=== PATIENT | female | born 1955 | race Caucasian/White ===

== ENCOUNTER → 2017-05-30 | Outpatient (CLI) | payer OTHER ==
[2015-06-06 11:00] VITALS: BP 132/82
[~2017-05-30] MED LIST: DULO60CA6 PO; LEVO75TA5 PO; SIMV40TA3 PO
--- NOTE | 2017-05-30 12:58 | RAD ---
DATE: 05/30/2017 EXAM: DIGITAL SCREEN BILAT W/CAD HISTORY: Routine screening COMPARISON: 05/28/2016 This study was interpreted with the benefit of Computerized Aided Detection (CAD). The breast parenchyma shows scattered fibroglandular densities. Breast parenchyma level B. FINDINGS: No new or enlarging breast densities are seen. Minimal benign calcifications are present. No suspicious microcalcifications have developed. IMPRESSION: Stable mammograms without evidence of malignancy. BI-RADS CATEGORY: 2 BENIGN FINDING(S) RECOMMENDED FOLLOW-UP: 12M 12 MONTH FOLLOW-UP PQRS compliance statement: Patient information was entered into a reminder system with a target due date for the next mammogram. Mammography is a sensitive method for finding small breast cancers, but it does not detect them all and is not a substitute for careful clinical examination. A negative mammogram does not negate a clinically suspicious finding and should not result in delay in biopsying a clinically suspicious abnormality. "Our facility is accredited by the [employer] Mammography [employer]."
== END | disposition home or self-care (01) ==
LOC: MAMMO 10:00
PROVIDERS: ATTEND Nurse Practitioner Family
DX: Z12.31 Encounter for screening mammogram for malignant neoplasm of breast (principal)
CPT/HCPCS: G0202; 77067

== ENCOUNTER → 2017-11-18 | Outpatient (CLI) | payer OTHER | END | disposition home or self-care (01) | LOC: KCIC MRI 07:44 | DX: M50.222 Other cervical disc displacement at C5-C6 level (principal); M50.323 Other cervical disc degeneration at C6-C7 level; M47.892 Other spondylosis, cervical region; M25.78 Osteophyte, vertebrae | CPT/HCPCS: 71101; 72141 ==

== ENCOUNTER → 2018-06-19 | Outpatient (CLI) | payer OTHER ==
[2015-06-06 11:00] VITALS: BP 132/82
--- NOTE | 2018-06-19 13:39 | RAD ---
DATE: 06/19/2018 EXAM: DIGITAL SCREEN BILAT W/CAD HISTORY: Routine screening COMPARISON: 05/30/2017 This study was interpreted with the benefit of Computerized Aided Detection (CAD). Breast Density: SCATTERED The breast parenchyma shows scattered fibroglandular densities. Breast parenchyma level B. FINDINGS: No new or enlarging breast densities are seen. Minimal benign type calcifications are present. No suspicious microcalcifications have developed. IMPRESSION: Stable mammograms without evidence of malignancy. BI-RADS CATEGORY: 2 BENIGN FINDING(S) RECOMMENDED FOLLOW-UP: 12M 12 MONTH FOLLOW-UP PQRS compliance statement: Patient information was entered into a reminder system with a target due date for the next mammogram. Mammography is a sensitive method for finding small breast cancers, but it does not detect them all and is not a substitute for careful clinical examination. A negative mammogram does not negate a clinically suspicious finding and should not result in delay in biopsying a clinically suspicious abnormality. "Our facility is accredited by the [employer] Mammography [employer]."
== END | disposition home or self-care (01) ==
LOC: MAMMO 09:48
PROVIDERS: ATTEND Nurse Practitioner Family
DX: Z12.31 Encounter for screening mammogram for malignant neoplasm of breast (principal)
CPT/HCPCS: 77067

== ENCOUNTER → 2018-07-31 | Outpatient (CLI) | payer OTHER ==
[2015-06-06 11:00] VITALS: BP 132/82
--- NOTE | 2018-07-31 17:28 | KCIC ---
Three-view thoracic spine series Clinical indications: Back pain for couple of years. FINDINGS: No compression fracture or discitis or osteolytic process is evident. Mild degenerative endplate spurring is seen throughout the thoracic spine. IMPRESSION: No acute compression fracture. Electronically signed by: aFisal Antunez MD (07/31/2018 5:25 PM) [place] [id number]
--- NOTE | 2018-07-31 17:29 | KCIC ---
3 view study of the left elbow Clinical indications: Left elbow pain for one and half years which is getting worse. FINDINGS: No joint effusion is seen. No acute fracture or dislocation or osteolytic process is evident. No significant arthritic change is evident. No swelling of the olecranon bursa is seen to indicate bursitis radiographically. IMPRESSION: No significant osseous abnormality. Electronically signed by: Faisal Antunez MD (07/31/2018 5:25 PM) [id number]
--- NOTE | 2018-08-01 08:28 | KCIC ---
CT scan of the chest without contrast 07/31/2018 CLINICAL HISTORY: Left-sided chest pain. History of lung nodule. TECHNIQUE: Unenhanced, contiguous, 1.5 mm axial sections were obtained through the chest and upper abdomen. One or more of the following individualized dose reduction techniques were utilized for this study: 1. Automated exposure control. 2. Adjustment of the mA and/or kV according to patient size. 3. Use of iterative reconstruction technique. FINDINGS: Comparison is made to a PA chest radiograph dated 11/18/2017. The heart is normal in size. Mild scattered atherosclerotic calcification of the thoracic aorta and coronary arteries is seen. The thoracic aorta tapers normally. Calcified left hilar and mediastinal lymph nodes are seen. No hilar, mediastinal or axillary lymphadenopathy is noted. An 6 mm calcified granuloma is seen involving the left lower lobe. This corresponds to the abnormality seen on the patient's recent chest radiograph. No noncalcified pulmonary nodule is seen. No pulmonary infiltrate, pleural effusion or pneumothorax is noted. Images through the upper abdomen demonstrate atherosclerotic calcification involving the abdominal aorta. Mild degenerative changes are seen involving the thoracic spine. IMPRESSION: Findings consistent with prior granulomatous disease. No acute abnormality is seen. Electronically signed by: Giles Sorensen MD (08/01/2018 8:24 AM) [id number]
== END | disposition home or self-care (01) ==
LOC: KCIC CT 10:49
PROVIDERS: ATTEND Nurse Practitioner Family
DX: M47.894 Other spondylosis, thoracic region (principal); M25.522 Pain in left elbow; R91.1 Solitary pulmonary nodule; I70.90 Unspecified atherosclerosis
CPT/HCPCS: 71250; 72072; 73080

== ENCOUNTER → 2019-07-03 | Outpatient (CLI) | payer OTHER ==
[2015-06-06 11:00] VITALS: BP 132/82
[~2019-07-03] MED LIST changes: +SIMV40TA18 PO; -SIMV40TA3 PO
--- NOTE | 2019-07-03 16:26 | RAD ---
DATE: 07/03/2019. EXAM: DIGITAL SCREEN BILAT W/CAD. HISTORY: Routine mammographic screening. COMPARISON: 06/19/2018. This study was interpreted with the benefit of Computerized Aided Detection (CAD). FINDINGS: Breast Density: SCATTERED The breast parenchyma shows scattered fibroglandular densities. Breast parenchyma level B.. Scattered and vascular calcifications are benign. Small nodules laterally on the right are stable. There are no suspicious masses, microcalcifications or architectural distortion. The parenchymal pattern is stable. BI-RADS CATEGORY: 2 BENIGN FINDING(S). RECOMMENDED FOLLOW-UP: 12M 12 MONTH FOLLOW-UP. PQRS compliance statement: Patient information was entered into a reminder system with a target due date 07/03/2020 for the next mammogram. Mammography is a sensitive method for finding small breast cancers, but it does not detect them all and is not a substitute for careful clinical examination. A negative mammogram does not negate a clinically suspicious finding and should not result in delay in biopsying a clinically suspicious abnormality. "Our facility is accredited by the [employer] Mammography [employer]."
== END | disposition home or self-care (01) ==
LOC: MAMMO 08:42
PROVIDERS: ATTEND Nurse Practitioner Family
DX: Z12.31 Encounter for screening mammogram for malignant neoplasm of breast (principal); N64.89 Other specified disorders of breast; N63.10 Unspecified lump in the right breast, unspecified quadrant
CPT/HCPCS: 77067

== ENCOUNTER → 2019-11-16 | Outpatient (CLI) | payer OTHER ==
[2015-06-06 11:00] VITALS: BP 132/82
--- NOTE | 2019-11-16 11:46 | KCIC ---
Indication: Postmenopausal screening for osteoporosis. COMPARISON: None available. Bone Density: -BMD: (g/cm2) - AP Spine Total (L1-L4).......... 0.982. - Total left Hip................. 0.812. T-Score: - AP Spine Total (L1-L4)......... -0.6. - Total left Hip................. -1.1. Z-Score: - AP Spine Total (L1-L4).......... 1.2. - Total left Hip................. 0.2. World Health Organization criteria for BMD interpretation classify patients as Normal (T-score at or above -1.0), Osteopenic (T-score between -1.0 and -2.5), or Osteoporotic (T-score at or below -2.5). Impression: 1. AP Spine Total L1-L4--- normal. 2. Total left Hip--- osteopenia. Electronically signed by: Faisal Antunez MD (11/16/2019 11:43 AM) [facility] [place]
== END | disposition home or self-care (01) ==
LOC: KCIC DEXA 10:20
PROVIDERS: ATTEND Family Medicine
DX: M85.88 Other specified disorders of bone density and structure, other site (principal); Z78.0 Asymptomatic menopausal state
CPT/HCPCS: 77080

== ENCOUNTER → 2020-03-20 | Outpatient (CLI) | payer OTHER ==
[2015-06-06 11:00] VITALS: BP 132/82
--- NOTE | 2020-03-20 13:01 | KCIC ---
EXAM: Chest CT without intravenous contrast. HISTORY: Pulmonary nodule follow-up. TECHNIQUE: Computed tomographic images of the chest were obtained without contrast. Multiplanar reformatting was performed. *One or more of the following individualized dose reduction techniques were utilized for this examination: 1. Automated exposure control. 2. Adjustment of the mA and/or kV according to patient size. 3. Use of iterative reconstruction technique. COMPARISON: 07/31/2018. FINDINGS: The heart is normal in size. There is calcified atherosclerotic plaque involving the coronary arteries. The aorta is normal in caliber. The left vertebral artery originates likely from the aortic arch, a normal aortic arch branching variant. There are nonspecific mediastinal and hilar lymph nodes. These are not pathologically enlarged. There is no pneumothorax or pleural effusion. There is mild biapical pleural parenchymal scarring. There is also scarring within the right middle lobe, lingula and right lower lobe. There is a calcified granuloma with adjacent 8 mm elongated nodular density within the lateral left lower lobe (series 7, image 119), consistent with a pulmonary vessel. There few additional calcified granulomas within the left hilum The upper abdomen demonstrates no acute finding. There is a splenule adjacent to a normal sized spleen contains a few calcified granulomas. There is no suspicious osseous lesion. IMPRESSION: 1. Calcified granuloma within the left lower lobe with adjacent 8 mm elongated nodular density likely due to volume averaging of a pulmonary vessel. No suspicious pulmonary nodule is seen. 2. No acute thoracic finding. Electronically signed by: Lyndsay Oviedo MD (03/20/2020 12:59 PM) [id number]
== END ==
LOC: KCIC CT 12:19
PROVIDERS: ATTEND Family Medicine
DX: J98.4 Other disorders of lung (principal)
CPT/HCPCS: 71250

== ENCOUNTER → 2020-07-16 | Outpatient (CLI) | payer OTHER ==
[2015-06-06 11:00] VITALS: BP 132/82
--- NOTE | 2020-07-17 09:52 | RAD ---
DATE: 07/16/2020 2:09 PM EXAM: MAMMO CYNTHIA SCREENING BILATERAL HISTORY: Screening COMPARISON: 07/03/2019, 06/19/2018 Bilateral CC and MLO views of the breasts were performed. Bilateral breast tomosynthesis was performed in CC and MLO projections. This study was interpreted with the benefit of Computerized Aided Detection (CAD). FINDINGS: Breast Density: SCATTERED The breast parenchyma shows scattered fibroglandular densities. Breast parenchyma level B Negative left mammogram. Right mammogram shows a 4 mm oval mass in the anterior upper outer quadrant at the approximate 11:00 position 5 cm from the nipple that needs additional imaging with spot compression views and targeted ultrasound.. IMPRESSION: Right breast mass, findings for which additional imaging is advised. BI-RADS CATEGORY: 0 INCOMPLETE: NEEDS ADDITIONAL IMAGING EVALUATION AND/OR PRIOR MAMMOGRAMS FOR COMPARISON. RECOMMENDED FOLLOW-UP: ADD ADDITIONAL IMAGING The patient will be contacted to return for additional imaging and a supplemental report will follow. PQRS compliance statement: Patient information was entered into a reminder system with a target due date for the next mammogram. Mammography is a sensitive method for finding small breast cancers, but it does not detect them all and is not a substitute for careful clinical examination. A negative mammogram does not negate a clinically suspicious finding and should not result in delay in biopsying a clinically suspicious abnormality. "Our facility is accredited by the [employer] Mammography Program."
== END ==
LOC: MAMMO 13:47
PROVIDERS: ATTEND Family Medicine
DX: Z12.31 Encounter for screening mammogram for malignant neoplasm of breast (principal)
CPT/HCPCS: 77063; 77067

== ENCOUNTER → 2020-07-28 | Outpatient (CLI) | payer OTHER ==
[2015-06-06 11:00] VITALS: BP 132/82
--- NOTE | 2020-07-28 14:34 | RAD ---
Examination: 1. Right digital diagnostic mammogram. 2. Limited right breast ultrasound. INDICATION: 64-year-old woman recalled from screening for a small mass in the anterior upper outer right breast. COMPARISON: Screening mammograms of 07/13/2019, 07/16/2020 FINDINGS: Additional mammographic views confirm persistence of an oval mass 5 mm in diameter in the upper outer anterior right breast. Margins were obscured by overlying breast tissue but increased density persisted with spot views. Targeted ultrasound of the upper outer quadrant right breast identified an oval parallel orientation 5 mm nodule at the right 11:00 position 5 cm from the nipple that corresponds in size shape and position with the mammographic finding recalled from screening. IMPRESSION: Mildly suspicious 5 mm mass in the right breast at the 11:00 position 5 cm from the nipple. BI-RADS Category 4 Findings suspicious for malignancy. Recommend ultrasound-guided core needle biopsy. Discussed with patient prior to her discharge from imaging suite. Report telephoned to the patient's referring physician's office where Kenyatta Kendall nurse for Dr. Corcoran took the call on her behalf at 2:30 PM on 07/28/2020 Electronically signed by: Rao Hodge MD (07/28/2020 2:31 PM) [id number]
== END ==
LOC: MAMMO 07:44
PROVIDERS: ATTEND Family Medicine
DX: R92.8 Other abnormal and inconclusive findings on diagnostic imaging of breast (principal); N63.11 Unspecified lump in the right breast, upper outer quadrant
CPT/HCPCS: 76641; 77065

== ENCOUNTER → 2020-10-27 | Outpatient (CLI) | payer OTHER ==
[2015-06-06 11:00] VITALS: BP 132/82
--- NOTE | 2020-10-27 17:30 | RAD ---
EXAM: Lower extremity arterial Doppler sonogram with ankle-brachial indices (ELLEN). HISTORY: Toe pain. Peripheral vascular disease. TECHNIQUE: Doppler sonographic evaluation of the lower extremities was performed and pressure reading s were assessed. FINDINGS: Right brachial pressure: 145 mmHg Left brachial pressure: 138 mmHg Right ankle pressure (dorsalis pedis): 140 mmHg Right ankle pressure (posterior tibial): 141 mmHg Right ELLEN: 0.97 Left ankle pressure (dorsalis pedis): 141 mmHg Left ankle pressure (posterior tibial): 135 mmHg Left ELLEN: 0.97 IMPRESSION: Normal bilateral ankle-brachial indices. Electronically signed by: Lyndsay Oviedo MD (10/27/2020 5:28 PM) [id number]
== END ==
LOC: US 15:43
PROVIDERS: ATTEND Family Medicine
DX: S90.122A Contusion of left lesser toe(s) without damage to nail, initial encounter (principal); S90.121A Contusion of right lesser toe(s) without damage to nail, initial encounter; X58.XXXA Exposure to other specified factors, initial encounter; Y93.89 Activity, other specified; Y92.89 Other specified places as the place of occurrence of the external cause; Y99.8 Other external cause status
CPT/HCPCS: 93922

== ENCOUNTER → 2020-11-07 | Outpatient (CLI) | payer OTHER ==
[2015-06-06 11:00] VITALS: BP 132/82
--- NOTE | 2020-11-07 17:51 | KCIC ---
Barium swallow 11/07/2020 CLINICAL HISTORY: Dysphagia for 2 to 3 months. Difficulty swallowing pills. TECHNIQUE: A barium swallow study was performed under fluoroscopic control. The total fluoroscopic ti me is 5 minutes 21 seconds. 9 digital spot radiographs were obtained. FINDINGS: The swallowing mechanism is within normal limits. No aspiration is seen. The mucosal pattern of the hypopharynx, esophagus and GE junction is within normal limits. Tertiary c ontractions of the esophagus are seen consistent with mild to moderate esophageal dysmotility. There is a small sliding hiatal hernia. Mild to moderate gastroesophageal reflux is seen to the level of th e mid thoracic esophagus. The patient was given a barium tablet to swallow under fluoroscopy. The transit of the tablet through the esophagus was prolonged. The tablet persisted within the distal thoracic esophagus just superior to the GE junction for approximately a minute. This gradually passed into the stomach after the rodrigo ent ingested several mouthfuls of water. IMPRESSION: 1. Mild to moderate esophageal dysmotility. 2. Small sliding hiatal hernia. Qkfk-jx-eultdylr gastroesophageal reflux. 3. Prolonged transit of the barium tablet through the esophagus as discussed above. Electronically signed by: Giles Sorensen MD (11/07/2020 5:49 PM) [id number]
== END ==
LOC: KCIC 12:21
PROVIDERS: ATTEND Internal Medicine Gastroenterology
DX: K44.9 Diaphragmatic hernia without obstruction or gangrene (principal); K21.9 Gastro-esophageal reflux disease without esophagitis; R13.10 Dysphagia, unspecified
CPT/HCPCS: 74220

== ENCOUNTER → 2020-12-30 | Outpatient (CLI) | payer OTHER ==
[2015-06-06 11:00] VITALS: BP 132/82
[~2020-12-30] MED LIST changes: +CONTRAST GIVEN. MC PRN; +IOHEXOL 350 MG/ML 100 ML VIAL. IV ONE
--- NOTE | 2020-12-30 14:30 | RAD ---
Exam: CT angiogram abdomen and pelvis with bilateral lower extremity runoff CLINICAL HISTORY: Reason: PAD, both feet TOE PAIN / DISCOLORATION COMPARISON: none TECHNIQUE: CT angiogram of the abdomen and pelvis with bilateral lower extremity runoff was performed following the administration of IV contrast. Axial, coronal and sagittal reformatted images were gen erated. 2-D/3-D MIP reconstructions were also generated. PQRS compliance statement - One or more of the following individualized dose reduction techniques wer e utilized for this study: 1. Automated exposure control 2. Adjustment of the mA and/or kV according to patient size 3. Use of iterative reconstruction technique FINDINGS: CT angiogram: The visualized distal thoracic aorta and abdominal aorta are normal in caliber. Intermittent atherosc lerotic calcifications are seen. The common, internal and external iliac arteries bilaterally are pat ent, normal in caliber with intermittent atherosclerotic calcifications. Single bilateral renal arteries are widely patent. The SMA, celiac trunk and TERA are patent. Bilateral common femoral, superficial femoral, popliteal arteries are widely patent. The arteries of the calf are widely patent with in-line flow to the ankle and both the dorsalis pedis and posterior t ibialis arteries. CT abdomen and pelvis: Linear opacities lower lobes likely scarring/atelectasis. No focal liver lesion. Gallbladder is normal. No biliary duct dilatation. Pancreas and spleen are nor mal in appearance. Adrenal glands are unremarkable. Symmetric nephrograms. No focal renal lesion. Mil d cortical scarring inferior pole right kidney. No hydronephrosis. No hydroureter. Bladder is unremar kable. Moderate colonic stool content is seen. No small or large bowel dilatation. No bowel obstruction. No abdominal or pelvic lymphadenopathy. No abdominal or pelvic ascites. Degenerative changes of lower lumbar spine. No aggressive osseous lesion. Changes of first metatarsal osteotomy are seen. IMPRESSION: Intermittent atherosclerotic calcifications of aorta are seen. No evidence for high-grade stenosis or occlusion of the aorta, main branches are otherwise vessels with in-line flow to the ankle bilateral ly. Electronically signed by: Jasbir Suh MD (12/30/2020 2:28 PM) [facility]
== END ==
LOC: CT 08:33
PROVIDERS: ATTEND Surgery Vascular Surgery
DX: R23.0 Cyanosis (principal); I73.9 Peripheral vascular disease, unspecified; M47.816 Spondylosis without myelopathy or radiculopathy, lumbar region
CPT/HCPCS: 75635; Q9967

== ENCOUNTER → 2021-02-02 | Outpatient (CLI) | payer OTHER ==
[2015-06-06 11:00] VITALS: BP 132/82
[~2021-02-02] MED LIST changes: -CONTRAST GIVEN. MC PRN; -IOHEXOL 350 MG/ML 100 ML VIAL. IV ONE
--- NOTE | 2021-02-02 15:23 | CARD ---
MR#: [id number] Date of Study: 02/02/2021 Ordering Physician: ELZBIETA HURT, Referring Physician: ELZBIETA HURT, Tech: Freedom Zimmer ZENIA APPROVED REPORT EXAM: Two-dimensional and M-mode echocardiogram with Doppler and color Doppler. Other Information Quality : AverageHR: 83bpm Rhythm : NSR INDICATION Dyspnea RISK FACTORS Hyperlipidemia 2D DIMENSIONS Left Atrium(2D)3.2 (1.6-4.0cm)IVSd1.1 (0.7-1.1cm) Aortic Root(2D)2.7 (2.0-3.7cm)LVDd4.2 (3.9-5.9cm) LVOT Diameter2.1 (1.8-2.4cm)PWd1.1 (0.7-1.1cm) LVDs2.5 (2.5-4.0cm)FS (%) 40.2 % SV57.1 mlLVEF(%)71.2 (>50%) Aortic Valve AoV Peak Ovi.101.6cm/sAoV VTI22.9cm AO Peak GR.4.1mmHgLVOT Peak Ovi.94.3cm/s AO Mean GR.3mmHgAVA (VMAX)3.17cm2 Mitral Valve MV E Qanhxjvc25.3cm/sMV E Peak Gr.3mmHg MV DECEL [id number] A Wpopcbqn73.1cm/s MV E Mean Gr.2mmHgE/A Ratio0.7 MV A Ceqghhrx732uc Pulmonary Valve PV Peak Adyyvbqs17.8cm/s Tricuspid Valve TR P. Wnweasnd640ca/sTR Peak Gr.11mmHg Pulmonary Vein S1 Pbpvwyjf87.9cm/sD2 Zwflogzi15.2cm/s PVa [id number] LEFT VENTRICLE The left ventricle is normal size. There is normal left ventricular wall thickness. The left ventricu lar systolic function is normal. The ejection fraction is 60%. There is normal LV segmental wall jayro on. Transmitral Doppler flow pattern is Grade I-abnormal relaxation pattern. RIGHT VENTRICLE The right ventricle is normal size. There is normal right ventricular wall thickness. The right ventr icular systolic function is normal. ATRIA The left atrium size is normal. The right atrium size is normal. The interatrial septum is intact wit h no evidence for an atrial septal defect or patent foramen ovale as noted on 2-D or Doppler imaging. AORTIC VALVE The aortic valve is normal in structure and function. Doppler and Color Flow revealed no significant aortic regurgitation. There is no significant aortic valvular stenosis. MITRAL VALVE The mitral valve is normal in structure and function. There is no evidence of mitral valve prolapse. There is no mitral valve stenosis. Doppler and Color Flow revealed no mitral valve regurgitation note d. TRICUSPID VALVE The tricuspid valve is normal in structure and function. Doppler and Color Flow revealed no tricuspid valve regurgitation noted. There is no tricuspid valve stenosis. PULMONIC VALVE The pulmonary valve is normal in structure and function. Doppler and Color Flow revealed no pulmonic valvular regurgitation. GREAT VESSELS The aortic root is normal in size. The ascending aorta is normal in size. The IVC is normal in size a nd collapses >50% with inspiration. PERICARDIAL EFFUSION There is no evidence of significant pericardial effusion. Critical Notification Critical Value: No <Conclusion> The left ventricular systolic function is normal. The ejection fraction is 60%. There is normal LV segmental wall motion. Transmitral Doppler flow pattern is Grade I-abnormal relaxation pattern. There is no evidence of significant pericardial effusion. Signed by : Brandon El, Electronically Approved : 02/02/2021 15:23:12
== END ==
LOC: ECHO 12:56
PROVIDERS: ATTEND Internal Medicine Cardiovascular Disease
DX: R06.00 Dyspnea, unspecified (principal)
CPT/HCPCS: 93306

== ENCOUNTER → 2021-06-01 | Outpatient (CLI) | payer OTHER ==
[2015-06-06 11:00] VITALS: BP 132/82
[~2021-06-01] MED LIST changes: -DULO60CA6 PO; +DULO60CA7 PO; +REGADENOSON 0.4 MG/5 ML DISP.SYRIN. IV ONE
--- NOTE | 2021-06-01 18:00 | RAD ---
MR#: [id number] Date of Study: 06/01/2021 Ordering Physician: ELZBIETA HURT, Referring Physician: JANICE LARES Tech: RT Arie Sandoval) (N) APPROVED REPORT Test Type: Pharmacological Stress Nurse/Tech: Tiffanie Anthony RN Test Indications: chest pain Cardiac History: No known cardiac Medications: See Electronic Medical Record Medical History: See Electronic Medical Record Resting ECG: SR Resting Heart Rate: 77 bpm Resting Blood Pressure: 144/71mmHg Pretest Chest Pain: None Nurse/Tech Notes Lungs CTA, S1S2 Consent: The procedure was explained to the patient in lay terms. Informed consent was witnessed. Jeffery eout was entered into [employer]. History and Stress Test performed by RT Arie Hamm) (N) Pharm. Details Pharmacologic stress testing was performed using 0.4mg per 5ml of regadenoson given intravenously ove r 7-10 seconds. Stress Symptoms No chest pain or symptoms. POST EXERCISE Reason for Termination: Infusion complete Max HR: 109 bpm Max Blood Pressure: 147/66mmHg Blood Pressure response to exercise: Normal blood pressure response during stress. Heart Rate response to exercise: normal response Chest Pain: No. Arrhythmia: No. ST Change: No. INTERPRETATION Stress EKG Conclusion: No evidence of stress induced EKG changes. Imaging Protocol IMAGE PROTOCOL: Rest Tc-99m/stress Tc-99m 1 day Rest: Stress: Viability: Radiopharm.Tc99m PhqjrvnvrQh67c Sestamibi Atbl71nIo 32mCi Duration 15min. 15min. Img Date 06/01/2021 06/01/2021 Inj-Img Tfyy15kzq. 60min. Rest Admin Site:IV - Right AntecubitalAdministrator:RT Arie Sandoval)(N) Stress Admin Site: IV - Right AntecubitalAdministrator: RT Arie Hamm)(N) STRESS DATA End Diast. Vol.32.0mlLVEDV index BSA17.0ml End Syst. Vol.1.0mlLVESV index BSA1.0ml Myocardial Mass74.0gEject. Hvrcnplw52.0% Stress Scores Regional WT0.00Summed WT0.00 Regional WM0.00Summed WM0.00 The rest and stress images show normal perfusion, normal contraction and thickening. LV Perf. Quant 17 Seg. SSS0.00 17 Seg. SRS5.00 17 Seg. SDS0.00 Stress Defect Extent (% LAD)0.00Rest Defect Extent (% LAD)0.00Rev. Defect Extent (% LAD)0.00 Stress Defect Extent (% LCX) 0.00Rest Defect Extent (% LCX)35.00Rev. Defect Extent (% LCX)0.00 Stress Defect Extent (% RCA)0.00Rest Defect Extent (% RCA)0.00Rev. Defect Extent (% RCA)0.00 Stress Defect Extent (% STEVE)0.00Rest Defect Extent (% STEVE)7.20Rev. Defect Extent (% STEVE)0.00 Other Information Quality:Average Risk Assessment: Low Risk Conclusion 1. No evidence of stress induced EKG changes. 2. Normal perfusion at stress/rest 3. Normal EF at > 70% 4. Low risk study Signed by : Tomas Conteh, Electronically Approved : 06/01/2021 17:59:52
== END ==
LOC: NM 08:51
PROVIDERS: ATTEND Internal Medicine Cardiovascular Disease
DX: R07.9 Chest pain, unspecified (principal)
CPT/HCPCS: 78452; 93017; A9500; J2785